=== PATIENT | male | born 1990 | race Caucasian/White ===

== ENCOUNTER 2018-08-23 05:45 | Emergency (ER) | payer OTHER, SELFPAY ==
[2018-08-23 05:49] VITALS: BP 120/80; PULSE 84; RESP 18; TEMP 36.6; O2SAT 100; BMI 21.6
--- NOTE | 2018-08-23 06:01 | ED.ANXIETY ---
HPI - Anxiety General Chief Complaint: Anxiety Stated Complaint: Chest Pain Time Seen by Provider: 08/23/18 06:01 Source: patient and EMS Mode of arrival: EMS Limitations: no limitations History of Present Illness HPI narrative: Patient is a 28-year-old male who presents with chest pain and difficulty breathing. He was having a heated argument while at work outside with his girlfriend. Afterwards he found himself on with numbness down his left arm is spiraled into breathing hard he then had a carpal spasms. He is also having chest pain and heart palpitations. His symptoms have completely resolved now. He has been eating and sleeping regularly. Although his sleep pattern is different he works for [employer] and takes watch. But he does get sleep regularly. He has never had anxiety reaction in the past MD complaint: anxiety Review of Systems Review of Systems GENERAL: Denies chills, fatigue, malaise, fever, sweats, travel HEENT: Denies sinus pain, ear pain, sore throat, difficulty swallowing, neck pain RESPIRATORY: Denies dyspnea, cough, wheezing, hemoptysis, sputum. CARDIOVASCULAR: Chest pain heart palpitations GASTROINTESTINAL: See HPI : Denies dysuria, frequency, incontinence, hematuria, urinary retention, flank pain. MUSCULOSKELETAL: Denies weakness, joint pain, or bony pain SKIN: No rash, no erythema, no pruritus NEUROLOGIC: Denies weakness, dizziness, headache, numbness, change in speech, confusion PSYCHIATRIC: See HPI 12 point review of systems is negative except for those stated above and HPI PFSH Medical History Healthy adult (Acute) Social History Smoking Status: Never smoker Exam Initial Vital Signs Initial Vital Signs: Vital Signs Temperature 98 F 08/23/18 05:49 Pulse Rate 84 08/23/18 05:49 Respiratory Rate 18 08/23/18 05:49 Blood Pressure 120/80 08/23/18 05:49 Pulse Oximetry 100 08/23/18 05:49 GENERAL: A thin young male alert and oriented x3 water if no acute distress HEENT: Head atraumatic,EOMI, pupils reactive, face symmetric CARDIOVASCULAR: Regular rate and rhythm without murmurs, rubs or gallops. RESPIRATORY: Breath sounds equal bilaterally, no wheezes rales or rhonchi. ABDOMEN: Soft, nontender. Normoactive bowel sounds all 4 quadrants. No guarding or rebound. EXTREMITIES: Normal range of motion, no clubbing or edema. Neurovascularly intact NEUROLOGICAL: Alert and oriented x4.Normal gait and speech. Cranial nerves II through XII grossly intact. SKIN: Warm, dry, no laceration, no petechiae, no rashes or lesions. Course Vital Signs - 8 hr 08/23/18 05:49 Temperature 98 F Pulse Rate 84 Respiratory Rate 18 Blood Pressure 120/80 Pulse Oximetry 100 MDM - Anxiety ECG Data Attestation: I personally reviewed and interpreted this ECG as follows: Prior ECG tracings: not available for review Interpretation: Sinus rhythm rate [address] changes Discharge Plan Departure Patient Disposition: Home Clinical Impression: Acute anxiety Interventions: ED Discharge Assessment Last Done: 08/23/18 06:14 Instructions: DI for Anxiety -- Adult Activity Restrictions/Additional Instructions: *You have been diagnosed with anxiety reaction *Continue to take medications as directed *Follow up with your primary care provider in 2-3 days *Return to ER if you should have increasing chest pain, shortness of breath, heart palpitations or any new, worsening or concerning symptoms
== END 2018-08-23 06:26 | disposition home or self-care (01) ==
LOC: ED 06:21
PROVIDERS: Emergency Provider Emergency Medicine
DX: F41.9 Anxiety disorder, unspecified (principal); R07.89 Other chest pain
CPT/HCPCS: 93005; 93010; 99283